=== PATIENT | female | born 1935 | race Caucasian/White ===

== ENCOUNTER 2018-03-24 13:14 | Inpatient (IN) | END 2018-03-30 21:35 | disposition home health service (06) | DRG 871 ==

== ENCOUNTER 2018-04-24 16:45 | Observation (INO) | payer OTHER ==
[~2018-04-24] VITALS: Ht 147.3 cm; Wt 66.2 kg
[~2018-04-24 16:45] MED LIST: APIX5TAB PO; ASPI-817 PO; CALC500T12 PO; CARV25TA79 PO; DILT120C79 PO; FURO20TA3 PO; GABA100C14 PO; HYDR-2059 PO; LEVO750T25 PO; PANT40TA4 PO
[2018-04-24] MEDS ORDERED: ASPI-817 PO (20:10)
--- NOTE | 2018-04-24 22:25 | ERD ---
ER Documentation Chief Complaint Chief Complaint sob x 1 week; lwer left ap HPI 82-year-old female with a history of atrial fibrillation diagnosed 1 month ago during her admission here is presenting with worsening shortness of breath for the past 1 week, worse with any type of exertion. She denies any associated chest pain, dizziness, nausea, vomiting, fever or chills. She has been taking her medications as prescribed. She states that multiple medications were stopped upon discharge. She is only taking Eliquis, aspirin, and carvedilol at this time. She denies any associated leg swelling. No cough or sputum production. She has not followed up with her primary care doctor as instructed. ROS All systems reviewed and are negative except as per history of present illness. Medications Home Meds Active Scripts Apixaban* (Eliquis*) 5 Mg Tablet, 2.5 MG PO BID for 30 Days, #60 TAB 5 Refills Prov:JUAN ANTONIO SANTIAGO MD 03/30/18 Carvedilol* (Carvedilol*) 25 Mg Tablet, 25 MG PO BID for 30 Days, #60 TAB 6 Refills Prov:JUAN ANTONIO SANTIAGO MD 03/30/18 Reported Medications Aspirin* (Aspirin* EC) 81 Mg Tablet.dr, 81 MG PO DAILY, TAB 04/24/18 Discontinued Reported Medications Pantoprazole* (Pantoprazole*) 40 Mg Tablet.dr, 40 MG PO AC BREAKFAST, TAB 03/24/18 Calcium Carbonate* (Oysco-500*) 1 Tab Tablet, 1 TAB PO BID, TAB 11/21/15 Gabapentin* (Gabapentin*) 100 Mg Capsule, 100 MG PO TID, #90 CAP 11/21/15 Hydrocodone Bit-Acetaminophen* (Hydrocodone-APAP*) 10-325 Tablet, 1 TAB PO QID PRN for PAIN, TAB 11/21/15 Discontinued Scripts Diltiazem Hcl* (Diltiazem XT) 120 Mg Capsule.sa, 120 MG PO DAILY for 30 Days, #30 CAP 6 Refills Prov:JUAN ANTONIO SANTIAGO MD 03/30/18 Levofloxacin* (Levaquin*) 750 Mg Tablet, 750 MG PO Q48H for 2 Days, #2 TAB next dose 04/01 then 04/03 Prov:JUAN ANTONIO SANTIAGO MD 03/30/18 Furosemide* (Furosemide*) 20 Mg Tablet, 20 MG PO DAILY, #60 TAB Prov:MADELINE KEATING 11/22/15 Aspirin* (Aspirin* EC) 81 Mg Tablet., 81 MG PO DAILY, #90 TAB Prov:MADELINE KEATING 11/22/15 Allergies Allergies: Coded Allergies: diazepam (Verified Allergy, Unknown, 04/24/18) PMhx/Soc History of Surgery: Yes (left breast cancer s/p lumpectomy, hysterectomy) Anesthesia Reaction: No Hx Neurological Disorder: No Hx Respiratory Disorders: No Hx Cardiac Disorders: Yes (HTN, Afib, CHF) Hx Psychiatric Problems: No Hx Miscellaneous Medical Probl: No Hx Alcohol Use: Yes (occasional) Hx Substance Use: No Hx Tobacco Use: No Smoking Status: Never smoker FmHx Family History: No diabetes Physical Exam Vitals Vital Signs Date Temp Pulse Resp B/P (MAP) Pulse Ox O2 O2 Flow FiO2 Time Delivery Rate 04/24/18 Nasal 2 19:40 Cannula 04/24/18 Nasal 2.0 19:40 Cannula 04/24/18 98.2 110 20 166/87 98 16:47 (113) Physical Exam Const: No acute distress Head: Atraumatic Eyes: Normal Conjunctiva ENT: Normal External Ears, Nose and Mouth. Neck: Full range of motion. No meningismus. No JVD Resp: Tachypneic, subcostal retractions noted. Bibasilar crackles Cardio: Tachycardic with irregular rhythm, no murmurs Abd: Soft, non tender, non distended. Normal bowel sounds Skin: No petechiae or rashes Back: No midline or flank tenderness Ext: No cyanosis, or edema Neur: Awake and alert Psych: Normal Mood and Affect Result Diagram: 04/24/18199904/24/181999 Results 24 hrs Laboratory Tests Test 04/24/18 19:44 04/24/18 20:00 04/24/18 20:07 Blood Gas Specimen Source Blood venous Arterial Blood Date Drawn 04/24/2018 8:10:21 PM Arterial Blood Gas VENOUS LINE Puncture Site Franklyn Test N/A Venous Blood pH 7.350 Venous Blood pCO2 43.0 mmHG (Temp Corrected) Venous Blood pO2 47.2 mmHG (Temp Corrected) Venous Blood HCO3 23.2 mmol/L Venous Blood Oxygen 76.8 mmHG Saturation Venous Blood Base Excess -2.3 mmol/L Venous Blood Total Hemoglobin 11.2 g/dl Venous Blood Oxyhemoglobin 75.6 % Venous Blood Methemoglobin 0.3 % Carboxyhemoglobin 1.3 % Blood Gas Temperature 37.0 C Blood Gas Modality NASAL CANNULA FiO2 32.0 % Blood Gas Notified Whom Blood Gas Notified Time 04/24/2018 8:23:06 PM White Blood Count 7.9 10^3/ul Red Blood Count 4.07 10^6/ul Hemoglobin 10.0 g/dl Hematocrit 32.1 % Mean Corpuscular Volume 78.9 fl Mean Corpuscular Hemoglobin 24.6 pg Mean Corpuscular 31.2 g/dl Hemoglobin Concent Red Cell Distribution Width 17.5 % Platelet Count 311 10^3/UL Mean Platelet Volume 10.5 fl Immature Granulocytes % 0.400 % Neutrophils % 55.9 % Lymphocytes % 24.4 % Monocytes % 12.4 % Eosinophils % 5.4 % Basophils % 1.5 % Nucleated Red Blood Cells % 0.0 /100WBC Immature Granulocytes # 0.030 10^3/ul Neutrophils # 4.4 10^3/ul Lymphocytes # 1.9 10^3/ul Monocytes # 1.0 10^3/ul Eosinophils # 0.4 10^3/ul Basophils # 0.1 10^3/ul Nucleated Red Blood Cells # 0.0 10^3/ul Sodium Level 143 mmol/L Potassium Level 4.2 mmol/L Chloride Level 109 mmol/L Carbon Dioxide Level 24 mmol/L Anion Gap 10 Blood Urea Nitrogen 17 mg/dl Creatinine 0.86 mg/dl Est Glomerular Filtrat mL/min Rate mL/min Glucose Level 105 mg/dl Calcium Level 10.0 mg/dl Total Bilirubin 0.3 mg/dl Direct Bilirubin 0.00 mg/dl Indirect Bilirubin 0.3 mg/dl Aspartate Amino 26 IU/L Transf (AST/SGOT) Alanine 20 IU/L Aminotransferase (ALT/SGPT) Alkaline Phosphatase 92 IU/L Troponin I < 0.012 ng/ml Total Protein 7.4 g/dl Albumin 4.0 g/dl Globulin 3.40 g/dl Albumin/Globulin Ratio 1.17 POC Venous Lactate 1.5 mmol/L Current Medications Medications Dose Sig/Malou Start Time Status Last (Trade) Ordered Route PRN Stop Time Admin Dose Reason Admin Metoprolol 5 mg ONCE ONCE 04/24/18 Tartrate IV 22:30 04/24/18 (Lopressor) 22:31 Furosemide 20 mg ONCE ONCE 04/24/18 (Lasix) IV 22:30 04/24/18 22:31 Ondansetron 4 mg ER BRIDGE 04/24/18 HCl (Zofran PRN IV 22:30 04/25/18 Inj) NAUSEA AND/OR 22:29 VOMITING 650 mg ER BRIDGE 04/24/18 Acetaminophen PRN PO MILD 22:30 04/25/18 (Tylenol PAIN(1-3)OR 22:29 Tab) ELEVATED TEMP Procedures/MDM ED course EMERGENT LABS AND DIAGNOSTIC STUDIES: Lab Results above were reviewed and interpreted by me. CBC: Mild anemia, no evidence of infection CMP: No evidence of electrolyte abnormality, renal failure, hypoglycemia, liver failure, or biliary obstruction Troponin within normal limits, not indicative of cardiac ischemia Lactic acid within normal limits, no evidence of tissue hypoperfusion or sepsis 12-lead EKG was interpreted by Danis Dennison MD: Atrial fibrillation with RVR at 125 beats per minute Left axis deviation Normal intervals Anterior and inferior Q waves No acute ST or T wave changes suggestive of acute ischemia or STEMI. Radiology Results as interpreted by Radiology below were reviewed by Cherry Dennison MD: Chest x-ray: FINDINGS: There is mild air space disease in the mid and lower lung zones, improved. The lungs are otherwise clear. The heart is enlarged. There is no pleural effusion. There is no pneumothorax. IMPRESSION: 1. Improved appearance of the lungs. 2. Cardiomegaly. 3. Otherwise unremarkable mil chest radiograph. .Nicola Restrepo MD, MD Date Time Electronically viewed and signed by .Nicola Restrepo MD, on 04/24/2018 20:43 Initial Nursing notes reviewed. Previous Medical Records requested via the Electronic Health Record. EMERGENCY DEPARTMENT COURSE / MEDICAL DECISION MAKING: Patient is presenting with dyspnea on exertion and A. fib with poorly controlled rate. There is no evidence of acute coronary syndrome at this time. I do suspect possible CHF. Lower suspicion for pulmonary embolism. There is no evidence of pneumonia or pneumothorax. I reviewed the patient's discharge summary and it seems that multiple medications were stopped prior to her discharge, including diltiazem and Lasix. She was started on carvedilol and Eliquis instead. Patient will be treated with metoprolol IV and Lasix IV. She is not stable for discharge and will require admission for stabilization. Accepting Care Team: Current data and ongoing care discussed. Time: Time of admission Primary Provider: Dr. Mercedes Outstanding Data: none Departure Diagnosis: Primary Impression: Atrial fibrillation with RVR Additional Impression: Dyspnea on minimal exertion Condition: Fair TEVIN DENNISON MD Apr 24, 2018 22:25
[2018-04-24] MEDS ORDERED: ONDANSETRON 4 MG INJ IV PRN (22:30)
[2018-04-24] MEDS ORDERED: ACETAMINOPHEN 325 MG TAB PO PRN (22:30)
[2018-04-24] MEDS ORDERED: METOPROLOL 5 MG INJ IV ONE (22:30)
[2018-04-24] MEDS ORDERED: FUROSEMIDE 20 MG INJ IV ONE (22:30)
--- NOTE | 2018-04-24 23:59 | HP ---
Date/Time of Note Date/Time of Note DATE: 04/24/18 TIME: 23:59 Assessment/Plan VTE Prophylaxis Pharmacological prophylaxis: heparin Lines/Catheters IV C[facility]ter Type (from [facility]): Saline Lock Assessment/Plan Hospital Course 82-year-old female with a history of hypertension, breast cancer status post lumpectomy, mild systolic dysfunction with recent EF of 50%, recently diagnosed atrial fibrillation, recent admission for pneumonia who presents with shortness of breath, wheezing and chest pain. PLAN Admit to telemetry unit Rule out ACS Supplemental oxygen, bronchodilators, aspirin. Trial of steroid Continue home meds, with adjustment as needed Patient with microcytic anemia. Check ferritin/iron and FOBT to workup for iron deficiency and GI bleed. Note that the patient is on Eliquis for A-fib Result Diagram: 04/24/18199904/24/181999 Results 24hrs Laboratory Tests Test 04/24/18 19:44 04/24/18 20:00 04/24/18 20:07 04/24/18 23:56 Blood Gas Specimen Blood venous Source Arterial Blood 04/24/2018 8:10:21 Date Drawn PM Arterial Blood Gas VENOUS LINE Puncture Site Franklyn Test N/A Venous Blood pH 7.350 Venous Blood pCO2 43.0 (Temp Corrected) Venous Blood pO2 47.2 H (Temp Corrected) Venous Blood HCO3 23.2 Venous Blood 76.8 H Oxygen Saturation Venous Blood Base -2.3 Excess Venous Blood Total 11.2 Hemoglobin Venous Blood 75.6 Oxyhemoglobin Venous Blood 0.3 Methemoglobin Carboxyhemoglobin 1.3 Blood Gas 37.0 Temperature Blood Gas Modality NASAL CANNULA FiO2 32.0 Blood Gas Notified KM Whom Blood Gas Notified 04/24/2018 8:23:06 Time PM White Blood Count 7.9 Red Blood Count 4.07 L Hemoglobin 10.0 L Hematocrit 32.1 L Mean Corpuscular 78.9 L Volume Mean Corpuscular 24.6 L Hemoglobin Mean Corpuscular 31.2 L Hemoglobin Concent Red Cell 17.5 H Distribution Width Platelet Count 311 Mean Platelet 10.5 H Volume Immature 0.400 Granulocytes % Neutrophils % 55.9 Lymphocytes % 24.4 Monocytes % 12.4 H Eosinophils % 5.4 Basophils % 1.5 Nucleated Red 0.0 Blood Cells % Immature 0.030 Granulocytes # Neutrophils # 4.4 Lymphocytes # 1.9 Monocytes # 1.0 H Eosinophils # 0.4 Basophils # 0.1 Nucleated Red 0.0 Blood Cells # Sodium Level 143 Potassium Level 4.2 Chloride Level 109 Carbon Dioxide 24 Level Anion Gap 10 Blood Urea 17 Nitrogen Creatinine 0.86 Est Glomerular Filtrat Rate mL/min Glucose Level 105 Calcium Level 10.0 Total Bilirubin 0.3 Direct Bilirubin 0.00 Indirect Bilirubin 0.3 Aspartate Amino 26 Transf (AST/SGOT) Alanine 20 Aminotransferase ( ALT/SGPT) Alkaline 92 Phosphatase Troponin I < 0.012 Total Protein 7.4 Albumin 4.0 Globulin 3.40 H Albumin/Globulin 1.17 Ratio POC Venous Lactate 1.5 1.2 HPI/ROS Admit Date/Time Admit Date/Time Hx of Present Illness This is an 82-year-old female with a history of hypertension, breast cancer sta tus post lumpectomy, mild systolic dysfunction with recent EF of 50%, recently diagnosed atrial fibrillation. Patient presented to ER complaining of shortness of breath, chest pain, wheezing. She also reported lower back pain. Patient was recently admitted here to [facility] and was discharged about 3 weeks ago. At that time she was diagnosed with atrial fibrillation and also was treated for sepsis secondary to pneumonia. 2D echo shows an EF of 50%. When presented to ER, she was found to be in A. fib with high as documented heart rate of 110. Currently rate controlled. Chest x-ray shows improved appearance of the lungs. PMH/Family/Social Past Medical History Medications Current Medications Ondansetron HCl (Zofran Inj) 4 mg ER BRIDGE PRN IV NAUSEA AND/OR VOMITING; Start 04/24/18 at 22:30; Stop 04/25/18 at 22:29 Acetaminophen (Tylenol Tab) 650 mg ER BRIDGE PRN PO MILD PAIN(1-3)OR ELEVATED TEMP; Start 04/24/18 at 22:30; Stop 04/25/18 at 22:29 Coded Allergies: diazepam (Verified Allergy, Unknown, 04/24/18) Family History Significant Family History: no pertinent family hx Social History Smoking Status: Never smoker Exam/Review of Systems Vital Signs Vitals Vital Signs Date Temp Pulse Resp B/P (MAP) Pulse Ox O2 O2 Flow FiO2 Time Delivery Rate 04/24/18 93 24 134/96 100 Room Air 22:25 (109) 04/24/18 2 19:40 04/24/18 98.2 16:47 Exam Exam Constitutional: other (no acute distress) Head: normocephalic Respiratory: other (slight decreased at bases) Cardiovascular: regular rate and rhythm Gastrointestinal: soft Extremities: normal pulses PMH/Family/Social Past Medical History Medical History: other (see hpi) Coded Allergies: No Known Drug Allergy (Verified Allergy, Unknown, 12/06/15) Past Surgical History Past Surgical Hx: other (see hpi) Family History Significant Family History: no pertinent family hx Social History Alcohol Use: other Smoking Status: Unknown if ever smoked Drug Use: other ELLIE CHIN MD Apr 24, 2018 23:59
[2018-04-25] VITALS (8 sets, daily range): BP systolic 114–130; BP diastolic 65–85; PULSE 74–101; RESP 18–20; Ht 147.3 cm; Wt 66.2 kg
[2018-04-25] MEDS ORDERED: NACL 0.9% 3 ML SYG IV SCH (00:30)
[2018-04-25] MEDS ORDERED: NITROGLYCERIN (SL) 0.4 MG TAB SL PRN (00:30)
[2018-04-25] MEDS ORDERED: ONDANSETRON 4 MG INJ IV PRN (00:30)
[2018-04-25] MEDS ORDERED: ACETAMINOPHEN 325 MG TAB PO PRN (00:30)
[2018-04-25] MEDS ORDERED: HYDROCODONE/APAP (5/325) TAB PO PRN (00:30)
[2018-04-25] MEDS ORDERED: METHYLPREDNISOLONE 125 MG INJ IV ONE (07:00)
[2018-04-25] MEDS: ASPIRIN (EC) 81 MG TAB PO SCH (09:12)
[2018-04-25] MEDS: APIXABAN 5 MG TABLET PO SCH ×2 (09:13→20:33)
[2018-04-25] MEDS ORDERED: POTASSIUM CHLORIDE (SR) 20 MEQ TAB PO STA (17:22)
--- NOTE | 2018-04-25 17:57 | PN ---
Date/Time of Note Date/Time of Note DATE: 04/25/18 TIME: 17:50 Assessment/Plan VTE Prophylaxis Pharmacological prophylaxis: apixaban Lines/Catheters IV [facility] Type [facility]from [facility] Saline Lock Urinary Cath still in place: No Assessment/Plan Hospital Course 1. Acute respiratory distress secondary to possible bronchitis Patient was reporting wheezing and pleuritic pain which have since resolved No indication for antibiotics or steroids, patient did receive Solu-Medrol x1 Patient continues to require supplemental oxygen and does not use oxygen at home, attempt to wean off supplemental O2 No evidence of sepsis 2. Chest pain-atypical Pain appears to be pleuritic Troponins negative x3, no indication for cardiology consultation 3. History of breast cancer status post lumpectomy No acute issues 4. History of mild CHF Recent echo shows an EF of 50% Continue cardiac meds 5. A. fib-controlled Continue Eliquis and Coreg 6. Hypokalemia Replete 7. Constipation Colace and senna Prophylaxis: On Eliquis DC planning: Anticipate DC home tomorrow if off oxygen Result Diagram: 04/25/18 0603 04/25/18 0603 Results 24hrs Laboratory Tests Test 04/24/18 19:44 04/24/18 20:00 04/24/18 20:07 04/24/18 23:52 Blood Gas Specimen Blood venous Source Arterial Blood 04/24/2018 8:10:21 Date Drawn PM Arterial Blood Gas VENOUS LINE Puncture Site Franklyn Test N/A Venous Blood pH 7.350 Venous Blood pCO2 43.0 (Temp Corrected) Venous Blood pO2 47.2 H (Temp Corrected) Venous Blood HCO3 23.2 Venous Blood 76.8 H Oxygen Saturation Venous Blood Base -2.3 Excess Venous Blood Total 11.2 Hemoglobin Venous Blood 75.6 Oxyhemoglobin Venous Blood 0.3 Methemoglobin Carboxyhemoglobin 1.3 Blood Gas 37.0 Temperature Blood Gas Modality NASAL CANNULA FiO2 32.0 Blood Gas Notified KM Whom Blood Gas Notified 04/24/2018 8:23:06 Time PM White Blood Count 7.9 Red Blood Count 4.07 L Hemoglobin 10.0 L Hematocrit 32.1 L Mean Corpuscular 78.9 L Volume Mean Corpuscular 24.6 L Hemoglobin Mean Corpuscular 31.2 L Hemoglobin Concent Red Cell 17.5 H Distribution Width Platelet Count 311 Mean Platelet 10.5 H Volume Immature 0.400 Granulocytes % Neutrophils % 55.9 Lymphocytes % 24.4 Monocytes % 12.4 H Eosinophils % 5.4 Basophils % 1.5 Nucleated Red 0.0 Blood Cells % Immature 0.030 Granulocytes # Neutrophils # 4.4 Lymphocytes # 1.9 Monocytes # 1.0 H Eosinophils # 0.4 Basophils # 0.1 Nucleated Red 0.0 Blood Cells # Sodium Level 143 Potassium Level 4.2 Chloride Level 109 Carbon Dioxide 24 Level Anion Gap 10 Blood Urea 17 Nitrogen Creatinine 0.86 Est Glomerular Filtrat Rate mL/min Glucose Level 105 Calcium Level 10.0 Total Bilirubin 0.3 Direct Bilirubin 0.00 Indirect Bilirubin 0.3 Aspartate Amino 26 Transf (AST/SGOT) Alanine 20 Aminotransferase ( ALT/SGPT) Alkaline 92 Phosphatase Troponin I < 0.012 < 0.012 Total Protein 7.4 Albumin 4.0 Globulin 3.40 H Albumin/Globulin 1.17 Ratio POC Venous Lactate 1.5 Lactic Acid Level 1.1 Creatine Kinase 31 Creatine Kinase 2.1 Index Creatinine Kinase 0.64 MB (Mass) Test 04/24/18 23:56 04/25/18 06:03 POC Venous Lactate 1.2 White Blood Count 7.8 Red Blood Count 3.81 L Hemoglobin 9.2 L Hematocrit 29.7 L Mean Corpuscular 78.0 L Volume Mean Corpuscular 24.1 L Hemoglobin Mean Corpuscular 31.0 L Hemoglobin Concent Red Cell 17.2 H Distribution Width Platelet Count 285 Mean Platelet 10.2 Volume Immature 0.400 Granulocytes % Neutrophils % 55.7 Lymphocytes % 26.1 Monocytes % 11.0 Eosinophils % 5.4 Basophils % 1.4 Nucleated Red 0.0 Blood Cells % Immature 0.030 Granulocytes # Neutrophils # 4.3 Lymphocytes # 2.0 Monocytes # 0.9 Eosinophils # 0.4 Basophils # 0.1 Nucleated Red 0.0 Blood Cells # Sodium Level 143 Potassium Level 3.4 L Chloride Level 107 Carbon Dioxide 29 Level Anion Gap 7 Blood Urea 15 Nitrogen Creatinine 0.90 Est Glomerular Filtrat Rate mL/min Glucose Level 99 Calcium Level 9.8 Iron Level 16 L Total Iron Binding 328 Capacity Percent Iron 5 L Saturation Ferritin 8.5 L Total Bilirubin 0.5 Direct Bilirubin 0.00 Indirect Bilirubin 0.5 Aspartate Amino 21 Transf (AST/SGOT) Alanine 23 Aminotransferase ( ALT/SGPT) Alkaline 77 Phosphatase Creatine Kinase 27 Creatine Kinase 2.3 Index Creatinine Kinase 0.62 MB (Mass) Troponin I < 0.012 Total Protein 6.8 Albumin 3.6 Globulin 3.20 Albumin/Globulin 1.12 Ratio Subjective 24 Hr Interval Summary Constitutional: no complaints Exam/Review of Systems Vital Signs Vitals Vital Signs Date Temp Pulse Resp B/P (MAP) Pulse Ox O2 O2 Flow FiO2 Time Delivery Rate 04/25/18 101 16:09 04/25/18 97.4 20 114/69 95 Nasal 15:12 (84) Cannula 04/25/18 2.0 08:30 Exam Constitutional: alert, oriented Respiratory: clear to auscultation Cardiovascular: regular rate and rhythm Gastrointestinal: soft; No distended Musculoskeletal: nl extremities to inspection Medications Medications Current Medications IV Flush (NS 3 ml) 3 ml PER PROTOCOL IV ; Start 04/25/18 at 00:30 Ondansetron HCl (Zofran Inj) 4 mg Q6H PRN IV NAUSEA AND/OR VOMITING; Start 04/25/18 at 00:30 Nitroglycerin (Nitroglycerin (Sl Tab) 0.4 Mg) 1 tab Q5M PRN SL CHEST PAIN; Sta rt 04/25/18 at 00:30 Acetaminophen (Tylenol Tab) 650 mg Q6H PRN PO PAIN LEVEL 1-3 OR FEVER; Start 04/25/18 at 00:30 Acetaminophen/ Hydrocodone Bitart (Mission (5/325)) 1 tab Q6H PRN PO PAIN LEVEL 4-6; Start 04/25/18 at 00:30 Apixaban (Eliquis) 2.5 mg BID PO Last administered on 04/25/18at 09:13; Admin Do se 2.5 MG; Start 04/25/18 at 09:00 Aspirin (Halfprin) 81 mg DAILY PO Last administered on 04/25/18at 09:12; Admin Dose 81 MG; Start 04/25/18 at 09:00 Carvedilol (Coreg) 25 mg BID PO Last administered on 04/25/18at 09:14; Admin Dose 25 MG; Start 04/25/18 at 00:30 Influenza Virus Vaccine Quadrival (Fluzone) 0.5 ml ONCE ONCE IM* ; Start 04/26/18 at 10:00; Stop 04/26/18 at 10:01 Docusate Sodium (Colace) 100 mg BID PO ; Start 04/25/18 at 21:00 Senthiago (Senokot) 1 tab BID PO ; Start 04/25/18 at 21:00 MADELINE KEATING Apr 25, 2018 17:57
--- NOTE | 2018-04-25 18:11 | NUR ---
EOSS: Patient is AAOx4, [place]ish-speaking. VSS, A-fib controlled on the monitor. Amb w/ cane, BRP. Pt c/o constipation - orders placed. Potassium 3.4 - replaced. Hourly rounding done, fall precautions initiated, all needs attended to. Pt is stable - will endorse to oncoming shift.
[2018-04-25] MEDS: DOCUSATE SODIUM 100 MG CAP PO SCH (20:32)
[2018-04-25] MEDS: SENNA TAB PO SCH (20:35)
[2018-04-26] VITALS (9 sets, daily range): BP systolic 114–128; BP diastolic 59–72; PULSE 63–98; RESP 18
--- NOTE | 2018-04-26 06:32 | NUR ---
EOSS Pt AOX4 ,ambulatory , beninese speaking , pt V/S stable, no C/O pain, on NC 2 L , SAT = 97 %, will endorsed to am RN
[2018-04-26] MEDS: SENNA TAB PO SCH (08:29)
[2018-04-26] MEDS: DOCUSATE SODIUM 100 MG CAP PO SCH (08:29)
[2018-04-26] MEDS: APIXABAN 5 MG TABLET PO SCH (08:29)
[2018-04-26] MEDS: ASPIRIN (EC) 81 MG TAB PO SCH (08:29)
[2018-04-26] MEDS ORDERED: INFLUENZA VIRUS VACCINE 0.5 ML (DISPENSING) IM* ONE (10:00)
[2018-04-26] MEDS ORDERED: FURO20TA3 PO (14:13)
[2018-04-26] MEDS ORDERED: POTA10TA37 PO (14:14)
--- NOTE | 2018-04-26 14:22 | DS ---
Date/Time of Note Date/Time of Note DATE: 04/26/18 TIME: 14:15 Discharge Summary Admission/Discharge Info Admit Date/Time Apr 24, 2018 at 22:20 Discharge Date/Time Discharge Diagnosis 1. CHF, diastolic, acute on chronic, improved, follow up with cardiology 3. Atrial fibrillation, chronic, controlled rate, on eliquis and coreg Patient Condition: Stable Hospital Course 82-year-old female with a history of hypertension, breast cancer status post lumpectomy, and CHF with recent EF of 50% on 03/25/2018 and PASP 44 came in for exertional shortness of breath. CXR with cardiomegaly but no acute pulmonary i nfiltrates. Symptoms improved without specific treatment. Based on history of atrial fibrillation and cardiomegaly on CXR, shortness of breath is mostly likely cardiogenic, diastolic congestive heart failure, since last LVEF 50%. 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., Home Meds Active Scripts Potassium Chloride* (K-Dur*) 10 Meq Tab.prt.sr, 10 MEQ PO DAILY for 30 Days, TAB Prov:ANA LILIA RILEY MD 04/26/18 Furosemide* (Furosemide*) 20 Mg Tablet, 20 MG PO DAILY, #30 TAB Prov:ANA LILIA RILEY MD 04/26/18 Apixaban* (Eliquis*) 5 Mg Tablet, 2.5 MG PO BID for 30 Days, #60 TAB 5 Refills Prov:JUAN ANTONIO SANTIAGO MD 03/30/18 Carvedilol* (Carvedilol*) 25 Mg Tablet, 25 MG PO BID for 30 Days, #60 TAB 6 Refills Prov:JUAN ANTONIO SANTIAGO MD 03/30/18 Reported Medications Aspirin* (Aspirin* EC) 81 Mg Tablet., 81 MG PO DAILY, TAB 04/24/18 Discontinued Reported Medications Pantoprazole* (Pantoprazole*) 40 Mg Tablet.dr, 40 MG PO AC BREAKFAST, TAB 03/24/18 Calcium Carbonate* (Oysco-500*) 1 Tab Tablet, 1 TAB PO BID, TAB 11/21/15 Gabapentin* (Gabapentin*) 100 Mg Capsule, 100 MG PO TID, #90 CAP 11/21/15 Hydrocodone Bit-Acetaminophen* (Hydrocodone-APAP*) 10-325 Tablet, 1 TAB PO QID PRN for PAIN, TAB 11/21/15 Discontinued Scripts Diltiazem Hcl* (Diltiazem XT) 120 Mg Capsule.sa, 120 MG PO DAILY for 30 Days, #30 CAP 6 Refills Prov:JUAN ANTONIO SANTIAGO MD 03/30/18 Levofloxacin* (Levaquin*) 750 Mg Tablet, 750 MG PO Q48H for 2 Days, #2 TAB next dose 04/01 then 04/03 Prov:JUAN ANTONIO SANTIAGO MD 03/30/18 Furosemide* (Furosemide*) 20 Mg Tablet, 20 MG PO DAILY, #60 TAB Prov:MADELINE KEATING 11/22/15 Aspirin* (Aspirin* EC) 81 Mg Tablet.dr, 81 MG PO DAILY, #90 TAB Prov:MADELINE KEATING 11/22/15 Follow-up Plan PCP and cardiology in on e week Primary Care Provider Not On Staff Doctor Pending Labs Laboratory Tests Test 04/26/18 05:44 04/26/18 05:45 Sodium Level 143 mmol/L (135-144) Potassium Level 4.6 mmol/L (3.5-5.1) Chloride Level 101 mmol/L (97-110) Carbon Dioxide Level 32 mmol/L (21-31) Anion Gap 10 (5-13) Blood Urea Nitrogen 19 mg/dl (7-20) Creatinine 0.81 mg/dl (0.44-1.00) Est Glomerular Filtrat mL/min (>60) Rate mL/min Glucose Level 151 mg/dl (70-220) Calcium Level 9.7 mg/dl (8.4-10.2) Phosphorus Level 4.2 mg/dl (2.5-4.9) Magnesium Level 1.7 mg/dl (1.7-2.5) White Blood Count 14.3 10^3/ul (4.8-10.8) Red Blood Count 3.75 10^6/ul (4.20-5.40) Hemoglobin 9.1 g/dl (12.0-16.0) Hematocrit 29.4 % (37.0-47.0) Mean Corpuscular Volume 78.4 fl (82.0-101.0) Mean Corpuscular Hemoglobin 24.3 pg (29.0-33.0) Mean Corpuscular 31.0 g/dl (32.0-37.0) Hemoglobin Concent Red Cell Distribution Width 17.0 % (11.5-14.5) Platelet Count 271 10^3/UL (140-415) Mean Platelet Volume 10.4 fl (7.4-10.4) Immature Granulocytes % 0.600 % (0.001-0.429) Neutrophils % 85.9 % (39.0-77.0) Lymphocytes % 6.2 % (15.0-51.0) Monocytes % 7.2 % (0.0-11.0) Eosinophils % 0.0 % (0.0-7.0) Basophils % 0.1 % (0.0-2.0) Nucleated Red Blood Cells % 0.0 /100WBC (0.0-0.0) Immature Granulocytes # 0.080 10^3/ul (0.0-0.031) Neutrophils # 12.3 10^3/ul (1.6-7.5) Lymphocytes # 0.9 10^3/ul (0.8-2.9) Monocytes # 1.0 10^3/ul (0.3-0.9) Eosinophils # 0.0 10^3/ul (0.0-0.5) Basophils # 0.0 10^3/ul (0.0-0.1) Nucleated Red Blood Cells # 0.0 10^3/ul (0.0-0.0) Hemoglobin A1c 7.1 % (0-5.9) ANA LILIA RILEY MD Apr 26, 2018 14:22
[2018-04-26] MEDS ORDERED: POTASSIUM CHLORIDE (SR) 8 MEQ CAP PO SCH (14:30)
[2018-04-26] MEDS ORDERED: FUROSEMIDE 20 MG TAB PO SCH (14:30)
--- NOTE | 2018-04-26 15:09 | PN ---
Date/Time of Note Date/Time of Note DATE: 04/26/18 TIME: 13:48 Assessment/Plan VTE Prophylaxis Risk score (from Ns)>0 risk: 3 SCD applied (from Ns): Yes Pharmacological prophylaxis: other Pharm contraindication: low risk/ambulating Lines/Catheters IV C[facility] Type (from [facility] Saline Lock Urinary Cath still in place: No Assessment/Plan Result Diagram: 04/26/18 0545 04/26/18 0544 Results 24hrs Laboratory Tests Test 04/26/18 05:44 04/26/18 05:45 Sodium Level 143 Potassium Level 4.6 Chloride Level 101 Carbon Dioxide Level 32 H Anion Gap 10 Blood Urea Nitrogen 19 Creatinine 0.81 Est Glomerular Filtrat Rate mL/min Glucose Level 151 Calcium Level 9.7 Phosphorus Level 4.2 Magnesium Level 1.7 White Blood Count 14.3 #H Red Blood Count 3.75 L Hemoglobin 9.1 L Hematocrit 29.4 L Mean Corpuscular Volume 78.4 L Mean Corpuscular Hemoglobin 24.3 L Mean Corpuscular Hemoglobin Concent 31.0 L Red Cell Distribution Width 17.0 H Platelet Count 271 Mean Platelet Volume 10.4 Immature Granulocytes % 0.600 H Neutrophils % 85.9 H Lymphocytes % 6.2 L Monocytes % 7.2 Eosinophils % 0.0 Basophils % 0.1 Nucleated Red Blood Cells % 0.0 Immature Granulocytes # 0.080 H Neutrophils # 12.3 H Lymphocytes # 0.9 Monocytes # 1.0 H Eosinophils # 0.0 Basophils # 0.0 Nucleated Red Blood Cells # 0.0 Hemoglobin A1c 7.1 H Exam/Review of Systems Vital Signs Vitals Vital Signs Date Temp Pulse Resp B/P (MAP) Pulse Ox O2 O2 Flow FiO2 Time Delivery Rate 04/26/18 63 12:35 04/26/18 97.9 18 116/60 95 11:18 (78) 04/25/18 Nasal 2.0 22:00 Cannula Intake and Output 04/25/18 04/25/18 04/26/18 1414:59 22:59 06:59 IntakeIntake Total 600 ml BalanceBalance 600 ml Medications Medications Current Medications IV Flush (NS 3 ml) 3 ml PER PROTOCOL IV ; Start 04/25/18 at 00:30 Ondansetron HCl (Zofran Inj) 4 mg Q6H PRN IV NAUSEA AND/OR VOMITING; Start 04/25/18 at 00:30 Nitroglycerin (Nitroglycerin (Sl Tab) 0.4 Mg) 1 tab Q5M PRN SL CHEST PAIN; Start 04/25/18 at 00:30 Acetaminophen (Tylenol Tab) 650 mg Q6H PRN PO PAIN LEVEL 1-3 OR FEVER; Start 04/25/18 at 00:30 Acetaminophen/ Hydrocodone Bitart (Riggins (5/325)) 1 tab Q6H PRN PO PAIN LEVEL 4-6; Start 04/25/18 at 00:30 Apixaban (Eliquis) 2.5 mg BID PO Last administered on 04/26/18 08:29; Admin Dose 2.5 MG; Start 04/25/18 at 09:00 Aspirin (Halfprin) 81 mg DAILY PO Last administered on 04/26/18 08:29; Admin Dose 81 MG; Start 04/25/18 at 09:00 Carvedilol (Coreg) 25 mg BID PO Last administered on 04/26/18 08:30; Admin Dose 25 MG; Start 04/25/18 at 00:30 Docusate Sodium (Colace) 100 mg BID PO Last administered on 04/26/18 08:29; Admin Dose 100 MG; Start 04/25/18 at 21:00 Senna (Senokot) 1 tab BID PO Last administered on 04/26/18 08:29; Admin Dose 1 TAB; Start 04/25/18 at 21:00 ANA LILIA RILEY MD Apr 26, 2018 13:58
--- NOTE | 2018-04-26 17:13 | NUR ---
DISCHARGE: Patient alert oriented Malian speaking. Used traffic circuit engineer services to communicate with patient. DC instruction given to patient and daughter who was at the bedside. Prescriptions given to them and instructed to follow up with PMD and Float Remover. Denies pain. Lasix and potassium started today. Discharge in stable condition.
== END 2018-04-26 17:03 | disposition home or self-care (01) ==
LOC: E/R 16:45 → TEL 22:20
PROVIDERS: ADMIT Internal Medicine; ATTEND Internal Medicine
DX: I11.0 Hypertensive heart disease with heart failure (principal); I50.33 Acute on chronic diastolic (congestive) heart failure; I48.2 Chronic atrial fibrillation; Z79.01 Long term (current) use of anticoagulants; Z79.82 Long term (current) use of aspirin
CPT/HCPCS: 36415; 71045; 80048; 80053; 82550; 82553; 82728; 82803; 83036; 83540; 83605; 83735; 84100; 84484; 85025; 87081; 93005; 99285; G0378; J1940; J2930